=== PATIENT | female | born 1980 | race African-American/Black ===

== ENCOUNTER 2018-01-12 13:50 | Emergency (ER) | payer OTHER ==
[2018-01-12] MEDS: IPRATRPIUM/ALBUTEROL 0.5/2.5MG 3 ML NEBU. NEB (15:14)
[2018-01-12] MEDS: BENZONATATE 100 MG CAPSULE. PO (15:27)
[2018-01-12] MEDS: predniSONE 10 MG TABLET PO (15:28)
== END 2018-01-12 15:50 | disposition home or self-care (01) ==
LOC: ER 15:50
DX: J20.9 Acute bronchitis, unspecified (principal); F17.210 Nicotine dependence, cigarettes, uncomplicated; Z79.899 Other long term (current) drug therapy
CPT/HCPCS: 71046; 94640; 99284; J7512; J7620